=== PATIENT | female | born 1970 | race Caucasian/White ===

== ENCOUNTER 2017-12-16 08:11 | Outpatient (CLI) | payer OTHER ==
[2013-07-29 22:24] VITALS: BMI 48.4
--- NOTE | 2017-12-16 10:41 | US ---
EXAM: Right upper quadrant abdominal ultrasound. History: Abnormal liver function tests. Comparison: CT abdomen pelvis 07/29/2013 Technique: Multiple sonographic images through the abdomen were obtained. Color duplex Doppler was used to interrogate vascular flow. Findings: The liver is diffusely echogenic. No focal liver lesions identified sonographically. There is anteg rade flow within the main portal vein. Status post cholecystectomy. Common bile duct measures 0.7 c m in caliber. The visualized pancreas demonstrates no gross abnormality. No abdominal ascites. Rojas ited visualization of the right kidney demonstrates no evidence for hydronephrosis. Impression: Hepatic steatosis
== END 2017-12-16 08:12 | disposition home or self-care (01) ==
LOC: RAD 08:11
PROVIDERS: ATTEND Family Medicine
DX: R94.5 Abnormal results of liver function studies (principal)